=== PATIENT | female | born 1965 | race Asian ===

== ENCOUNTER → 2017-03-04 | Outpatient (CLI) | payer BC ==
--- NOTE | 2017-03-04 22:23 | US ---
EXAMINATION TYPE: US transvaginal DATE OF EXAM: 03/04/2017 6:14 PM COMPARISON: NONE CLINICAL HISTORY: R10.2 Pelvic Pain. Difficult exam due to large amount of peristalsing bowel bilater ally TECHNIQUE: Transvaginal (TV) Date of LMP: 2013 EXAM MEASUREMENTS: Uterus: Surgically absent Endometrial Stripe: Surgically absent Right Ovary: 1.8 x 1.1 x 1.2 cm Left Ovary: 2.9 x 1.3 x 1.5 cm 1. Uterus: Surgically absent 2. Endometrium: Surgically absent 3. Right Ovary: wnl 4. Left Ovary: wnl 5. Bilateral Adnexa: Large amount of peristalsing bowel visualized bilaterally 6. Posterior cul-de-sac: wnl IMPRESSION 1. Postsurgical changes with no adnexal mass or free fluid.
== END | disposition home or self-care (01) ==
LOC: RADUSMAIN 17:56
PROVIDERS: ATTEND Family Medicine
DX: R10.2 Pelvic and perineal pain (principal); Z98.890 Other specified postprocedural states
CPT/HCPCS: 76830

== ENCOUNTER → 2017-04-19 | Outpatient (CLI) | payer BC ==
[2017-04-19 09:38] LABS: Basophils # (A) 0.1 k/uL (0-0.2); Basophils % (A) 1 %; CH 31.2; CHCM 33.6; Eosinophils # (A) 0.3 k/uL (0-0.7); Eosinophils % (A) 6 %; HCT 42.7 % (34.0-46.0); HDW 2.25; HGB 14.3 gm/dL (11.4-16.0); Luc # (Auto) 0.18; Luc % (Auto) 4; Lymphocytes # (A) 1.5 k/uL (1.0-4.8); Lymphocytes % (A) 32 %; MCH 31.1 pg (25.0-35.0); MCHC 33.4 g/dL (31.0-37.0); MCV 93.2 fL (80.0-100.0); Mean Platelet Volume 8.3; Monocytes # (A) 0.4 k/uL (0-1.0); Monocytes % (A) 7 %; Neutrophils # (A) 2.4 k/uL (1.3-7.7); Neutrophils % (A) 50 %; RBC 4.59 m/uL (3.80-5.40); RDW 12.4 % (11.5-15.5); WBC 4.7 k/uL (3.8-10.6); WBC (Perox) 4.72
[2017-04-19 09:47] LABS: ALT 32 U/L (9-52); AST 37 U/L (14-36); Alkaline Phosphatase 90 U/L (38-126); Anion Gap 12 mmol/L; Blood Urea Nitrogen 19 mg/dL (7-17); Carbon Dioxide 28 mmol/L (22-30); Chloride 103 mmol/L (98-107); Cholesterol 238 mg/dL (<200); Glucose 102 mg/dL (74-99); HDL Cholesterol 48 mg/dL (40-60); Non-African American GFR(MDRD) >60 (>60 ml/min/1.73 sqM); Potassium 4.7 mmol/L (3.5-5.1); Sodium 143 mmol/L (137-145); Total Bilirubin 0.5 mg/dL (0.2-1.3); Total Protein 8.1 g/dL (6.3-8.2); Triglycerides 155 mg/dL (<150)
[2017-04-19 14:09] LABS: Hemoglobin A1C 5.2 % (4.2-6.1)
== END | disposition home or self-care (01) ==
LOC: LABMAIN 08:11
PROVIDERS: ATTEND Family Medicine
DX: E78.5 Hyperlipidemia, unspecified (principal); Z83.49 Family history of other endocrine, nutritional and metabolic diseases
CPT/HCPCS: 36415; 80053; 80061; 83036; 84439; 84443; 85025

== ENCOUNTER → 2017-11-18 | Day surgery (SDC) | payer BC ==
[2017-11-18 13:38] VITALS: PULSE 77; RESP 16; BMI 23.9
[2017-11-18 15:03] VITALS: BP 140/82; TEMP 98.7
--- NOTE | 2017-11-18 17:32 | USB ---
EXAMINATION TYPE: US biopsy breast VAD RT, Postbiopsy diagnostic mammo RT wo CAD DATE OF EXAM: 11/18/2017 CLINICAL HISTORY: 52-year-old female R92.8 ABN Mammogram. TECHNIQUE: Ultrasound guided core biopsy of the right breast. COMPARISON: 11/05/2017 and 11/07/2017 FINDINGS: The procedure of ultrasound guided core biopsy was explained to the patient. Benefits, alternatives, and risks were discussed. An informed consent was then obtained. The patient was placed in supine positioning for imaging and for the procedure. The overlying skin was prepped and draped in usual sterile fashion. Lidocaine was used as anesthetic into the skin and subcutaneous tissue up to area of concern in the subareolar right breast. Under ultrasound guidance, a 13-gauge vacuum-assisted mammotome Elite biopsy gun device was used to obtain 6 core samples. Following this, a ribbon clip was left in lesion. Postprocedure mammogram shows clip in place at the 5:00 subareolar region. The patient tolerated the procedure well without any immediate complication. The patient was kept in the radiology department for short stay after the procedure and then discharged home in stable condition. IMPRESSION: Successful, uncomplicated ultrasound guided core biopsy of area of concern in the 5:00 subareolar right breast, full pathology results to follow. Pathology Results: Benign BREAST, RIGHT POSTERIOR NIPPLE, CORE BIOPSY: FIBROCYSTIC CHANGES INCLUDING FIBROSIS, SMALL CYSTS AND MILD USUAL TYPE DUCTAL HYPERPLASIA. PSEUDOANGIOMATOUS STROMAL HYPERPLASIA (PASH). Recommendation Follow up ultrasound of the right breast in 6 months. The area can be monitored clinically as well. PASH is a benign entity that can demonstrate growth. EMILYD
== END ==
LOC: RADUSWWP 13:20
PROVIDERS: ATTEND Family Medicine
DX: N60.31 Fibrosclerosis of right breast (principal); N62 Hypertrophy of breast; R92.8 Other abnormal and inconclusive findings on diagnostic imaging of breast; Z88.2 Allergy status to sulfonamides
CPT/HCPCS: 88305; 19083; G0206; A4648; J2001

== ENCOUNTER → 2018-05-02 | Outpatient (CLI) | payer BC ==
[2018-05-02 10:19] LABS: Basophils % (A) 1 %; Eosinophils # (A) 0.2 k/uL (0-0.7); Eosinophils % (A) 5 %; HCT 42.1 % (34.0-46.0); HGB 14.3 gm/dL (11.4-16.0); Lymphocytes # (A) 1.6 k/uL (1.0-4.8); Lymphocytes % (A) 35 %; MCH 30.6 pg (25.0-35.0); MCHC 33.8 g/dL (31.0-37.0); MCV 90.3 fL (80.0-100.0); Mean Platelet Volume 7.7; Monocytes # (A) 0.4 k/uL (0-1.0); Monocytes % (A) 8 %; Neutrophils # (A) 2.1 k/uL (1.3-7.7); Neutrophils % (A) 48 %; Platelet Count 227 k/uL (150-450); RBC 4.67 m/uL (3.80-5.40); RDW 12.1 % (11.5-15.5); WBC 4.5 k/uL (3.8-10.6)
[2018-05-02 10:43] LABS: ALT 45 U/L (9-52); AST 37 U/L (14-36); Albumin 4.5 g/dL (3.5-5.0); Alkaline Phosphatase 54 U/L (38-126); Anion Gap 14 mmol/L; Blood Urea Nitrogen 14 mg/dL (7-17); Calcium 9.4 mg/dL (8.4-10.2); Carbon Dioxide 25 mmol/L (22-30); Chloride 103 mmol/L (98-107); Cholesterol 217 mg/dL (<200); Glucose 96 mg/dL (74-99); HDL Cholesterol 31 mg/dL (40-60); LDL Cholesterol,Calculated 147 mg/dL (0-99); Potassium 4.9 mmol/L (3.5-5.1); Sodium 142 mmol/L (137-145); Total Bilirubin 0.5 mg/dL (0.2-1.3); Total Protein 7.4 g/dL (6.3-8.2); Triglycerides 194 mg/dL (<150)
[2018-05-02 10:54] LABS: T4, Free (Free Thyroxine) 1.08 ng/dL (0.78-2.19)
== END | disposition home or self-care (01) ==
LOC: LABWHC1 08:28
PROVIDERS: ATTEND Obstetrics & Gynecology
DX: N95.9 Unspecified menopausal and perimenopausal disorder (principal); E78.1 Pure hyperglyceridemia; I10 Essential (primary) hypertension; E03.9 Hypothyroidism, unspecified
CPT/HCPCS: 36415; 80053; 80061; 82670; 83001; 84403; 84439; 84443; 85025

== ENCOUNTER → 2019-05-22 | Outpatient (CLI) | payer BC ==
[2019-05-22 10:02] LABS: Basophils # (A) 0.1 k/uL (0-0.2); Basophils % (A) 1 %; Eosinophils # (A) 0.3 k/uL (0-0.7); Eosinophils % (A) 4 %; HCT 45.3 % (34.0-46.0); Lymphocytes # (A) 1.9 k/uL (1.0-4.8); Lymphocytes % (A) 26 %; MCHC 33.2 g/dL (31.0-37.0); MCV 93.4 fL (80.0-100.0); Mean Platelet Volume 7.9; Monocytes # (A) 0.4 k/uL (0-1.0); Monocytes % (A) 6 %; Neutrophils # (A) 4.4 k/uL (1.3-7.7); Neutrophils % (A) 60 %; Platelet Count 220 k/uL (150-450); RBC 4.86 m/uL (3.80-5.40); RDW 12.2 % (11.5-15.5); WBC 7.2 k/uL (3.8-10.6)
[2019-05-22 17:04] LABS: African American GFR (CKD) 114.6 (60.0-200.0); Albumin 4.5 g/dL (3.80-4.90); Albumin/Globulin Ratio 1.96 (1.60-3.17); Anion Gap 7.6 mmol/L (4.00-12.00); BUN/Creat Ratio 18.57 Ratio (12.00-20.00); Calcium 9.9 mg/dL (8.7-10.3); Carbon Dioxide 25.4 mmol/L (21.6-31.8); Globulin 2.3 g/dL (1.6-3.3); Potassium 4.4 mmol/L (3.5-5.5); Total Bilirubin 0.7 mg/dL (0.2-1.2); Total Protein 6.8 g/dL (6.2-8.2)
[2019-05-22 17:11] LABS: T4, Free (Free Thyroxine) 1.2 ng/dL (0.80-1.80)
[2019-05-22 21:07] LABS: Hemoglobin A1C 5.6 % (4.0-6.0)
== END | disposition home or self-care (01) ==
LOC: LABWHC1 09:35
PROVIDERS: ATTEND Pediatrics
DX: E78.2 Mixed hyperlipidemia (principal); E11.9 Type 2 diabetes mellitus without complications; E55.9 Vitamin D deficiency, unspecified; E03.9 Hypothyroidism, unspecified; E89.41 Symptomatic postprocedural ovarian failure; D64.9 Anemia, unspecified
CPT/HCPCS: 36415; 80053; 80061; 82306; 82670; 82728; 83001; 83036; 84403; 84439; 84443; 85025

== ENCOUNTER → 2019-06-30 | Outpatient (CLI) | payer BC ==
--- NOTE | 2019-06-30 08:27 | MM ---
Reason for exam: additional evaluation requested from prior study. Last mammogram was performed 1 year and 7 months ago. History: Patient is postmenopausal. Benign US biopsy breast VAD RT of the right breast, November 18, 2017. Benign left breast aspiration of the left breast, August 16, 2013. U/S LT Cancelled Aspiration of both breasts, November 26, 2012. Benign right US cyst aspiration of the right breast, July 10, 2007. Benign US right core biopsy of the right breast, July 10, 2007. Taking estrogen for 6 months. Taking progesterone for 6 months. Physical Findings: Nurse did not find any significant physical abnormalities on exam. MG 3D Diag Mammo W/Cad AGUILA Bilateral CC and MLO view(s) were taken. Prior study comparison: November 18, 2017, right breast MG diagnostic mammo RT wo CAD. November 07, 2017, right breast MG 3d work up w/cad RT. The breast tissue is heterogeneously dense. This may lower the sensitivity of mammography. There are benign appearing round oval circumscribed right masses on the right in the upper outer quadrant at anterior and middle depth stable from 2016. No suspicious abnormality. Bilateral biopsy markers. No significant new findings when compared with previous films. These results were verbally communicated with the patient and result sheet given to the patient on 06/30/19. ASSESSMENT: Benign, BI-RAD 2 RECOMMENDATION: Routine screening mammogram of both breasts in 1 year.
== END ==
LOC: RADMAMWWP 07:03
PROVIDERS: ATTEND Obstetrics & Gynecology
DX: R92.8 Other abnormal and inconclusive findings on diagnostic imaging of breast (principal)
CPT/HCPCS: 77062; 77066

== ENCOUNTER → 2020-05-12 | Outpatient (CLI) | payer BC ==
[2020-05-12 07:54] LABS: Basophils % (A) 1 %; Eosinophils # (A) 0.3 k/uL (0-0.7); Eosinophils % (A) 5 %; HCT 42.9 % (34.0-46.0); HGB 14.7 gm/dL (11.4-16.0); Lymphocytes # (A) 1.7 k/uL (1.0-4.8); Lymphocytes % (A) 35 %; MCH 32.2 pg (25.0-35.0); MCHC 34.3 g/dL (31.0-37.0); MCV 93.9 fL (80.0-100.0); Mean Platelet Volume 8.4; Monocytes # (A) 0.3 k/uL (0-1.0); Monocytes % (A) 6 %; Neutrophils # (A) 2.5 k/uL (1.3-7.7); Neutrophils % (A) 50 %; Platelet Count 212 k/uL (150-450); RBC 4.57 m/uL (3.80-5.40); RDW 12.3 % (11.5-15.5)
[2020-05-12 12:34] LABS: Estradiol 37.6 pg/mL; Follicle Stimulating Hormone 57.2 mIU/mL
[2020-05-12 13:05] LABS: ALT 36 U/L (8-44); AST 31 U/L (13-35); African American GFR (CKD) 113.8 (60.0-200.0); Albumin/Globulin Ratio 1.92 (1.60-3.17); Alkaline Phosphatase 65 U/L (41-126); C Reactive Protein <0.4 mg/dL (0.0-0.8); Calcium 9.6 mg/dL (8.7-10.3); Carbon Dioxide 23.4 mmol/L (21.6-31.8); Chloride 103 mmol/L (96-109); Chol/HDL Ratio 5.84; Cholesterol 222 mg/dL (0-200); Globulin 2.4 g/dL (1.6-3.3); Glucose 96 mg/dL (70-110); LDL Cholesterol,Calculated 142.6 mg/dL (0.0-131.0); Non-African American GFR(CKD) 98.2 (60.0-200.0); Potassium 4.1 mmol/L (3.5-5.5); Sodium 138 mmol/L (135-145); Total Bilirubin 0.6 mg/dL (0.3-1.2)
== END | disposition home or self-care (01) ==
LOC: LABWHC1 07:04
PROVIDERS: ATTEND Pediatrics
DX: I10 Essential (primary) hypertension (principal); Z79.890 Hormone replacement therapy
CPT/HCPCS: 36415; 80053; 80061; 82670; 83001; 84402; 84439; 84443; 84481; 85025; 86140; 86769

== ENCOUNTER → 2021-02-26 | Outpatient (CLI) | payer BC ==
--- NOTE | 2021-02-26 10:48 | MM ---
Reason for exam: screening (asymptomatic). Last mammogram was performed 1 year and 8 months ago. History: Patient is postmenopausal. Benign US biopsy breast VAD RT of the right breast, November 18, 2017. Benign left breast aspiration of the left breast, August 16, 2013. U/S LT Cancelled Aspiration of both breasts, November 26, 2012. Benign right US cyst aspiration of the right breast, July 10, 2007. Benign US right core biopsy of the right breast, July 10, 2007. Took hormonal contraceptives for 5 years. Took estrogen for 6 months. Took progesterone for 6 months. Physical Findings: A clinical breast exam by your physician is recommended on an annual basis and results should be correlated with mammographic findings. MG 3D Screening Mammo W/Cad Bilateral CC and MLO view(s) were taken. Prior study comparison: June 30, 2019, bilateral MG 3d diag mammo w/cad AGUILA. November 18, 2017, right breast MG diagnostic mammo RT wo CAD. The breast tissue is extremely dense which could obscure a lesion on mammography. Increasing nodularity inner central left breast zone B. ASSESSMENT: Incomplete: need additional imaging evaluation, BI-RAD 0 RECOMMENDATION: Special view mammogram and ultrasound of the left breast. [facility] will attempt to contact patient to return for supplemental views and ultrasound.
== END | disposition home or self-care (01) ==
LOC: RADMAMWWP 07:23
PROVIDERS: ATTEND Obstetrics & Gynecology
DX: Z12.31 Encounter for screening mammogram for malignant neoplasm of breast (principal); Z78.0 Asymptomatic menopausal state
CPT/HCPCS: 77063; 77067

== ENCOUNTER → 2021-02-28 | Outpatient (CLI) | payer BC ==
--- NOTE | 2021-02-28 10:34 | BD ---
EXAMINATION TYPE: Axial Bone Density DATE OF EXAM: 02/28/2021 COMPARISON: NONE CLINICAL HISTORY: Height: 63.5 Weight: 143.2 FRAX RISK QUESTIONS: Alcohol (3 or more units per day): no Family History (Parent hip fracture): no Glucocorticoids (More than 3mos): no (Ex: prednisone, prednisolone, methylprednisolone, dexamethasone, and hydrocortisone). History of Fracture in Adulthood: no Secondary Osteoporosis: 1. Type 1 Diabetes: no 2. Hyperthyroidism: no 3. Menopause before 45: no 4. Malnutrition: no 5. Chronic liver disease: no Rheumatoid Arthritis: no Current Tobacco Use: no RISK FACTORS HISTORY OF: Surgery to Spine/Hip(right/left)/Wrist (right/left): no Family History of Osteoporosis: no Active: yes Diet low in dairy products/other sources of calcium: no Postmenopausal woman: hysterectomy age 51 Take estrogen and/or progesterone medications: bio-t How lon years Lost more than 2 inches in height since high school: no MEDICATIONS: vitamins, allergy meds Additional History: EXAM MEASUREMENTS: Bone mineral densitometry was performed using the [employer] [place]. Bone mineral density as measured about the Lumbar spine is: ----- L1-L4(G/cm2): 1.281 T Score Values are as follows: ----- L2: -0.3 ----- L3: 0.6 ----- L4: 2.5 ----- L1-L4: 0.8 Bone mineral density : baseline Bone mineral density about the R hip (g/cm2): 1.074 Bone mineral density about the L hip (g/cm2): 1.051 T Score values are as follows: -----R Neck: 0.3 -----L Neck: 0.1 -----R Total: 0.5 -----L Total: 0.5 Bone mineral density : baseline IMPRESSION: No evidence for osteoporosis or osteopenia. NOTE: T-SCORE=SD OF THE YOUNG ADULT MEAN.
== END | disposition home or self-care (01) ==
LOC: RADBDWWP 07:31
PROVIDERS: ATTEND Obstetrics & Gynecology
DX: Z13.820 Encounter for screening for osteoporosis (principal); Z78.0 Asymptomatic menopausal state
CPT/HCPCS: 77080

== ENCOUNTER → 2021-03-08 | Outpatient (CLI) | payer BC ==
--- NOTE | 2021-03-08 12:03 | USB ---
Reason for exam: additional evaluation requested from abnormal screening. History: Patient is postmenopausal. Benign US biopsy breast VAD RT of the right breast, November 18, 2017. Benign left breast aspiration of the left breast, August 16, 2013. U/S LT Cancelled Aspiration of both breasts, November 26, 2012. Benign right US cyst aspiration of the right breast, July 10, 2007. Benign US right core biopsy of the right breast, July 10, 2007. Took hormonal contraceptives for 5 years. Took estrogen for 6 months. Took progesterone for 6 months. Physical Findings: Nurse did not find any significant physical abnormalities on exam. US Breast Workup Limited LT Left limited breast ultrasound including focal area of concern, retroareolar and axilla demonstrates a 0.6 x 0.7 x 0.6cm cystic lesion with debris at 10 o'clock and a 0.4 x 0.4 x 0.3cm cystic lesion with debris at 10 o'clock. These results were verbally communicated with the patient and result sheet given to the patient on 03/08/21. ASSESSMENT: Probably benign, BI-RAD 3 RECOMMENDATION: Ultrasound of the left breast in 6 months. Consider cyst aspiration versus short term follow up. Manage patient on a clinical basis.
== END | disposition home or self-care (01) ==
LOC: RADUSWWP 09:24
PROVIDERS: ATTEND Obstetrics & Gynecology
DX: N60.02 Solitary cyst of left breast (principal)

== ENCOUNTER → 2021-03-28 | Outpatient (CLI) | payer BC ==
--- NOTE | 2021-03-29 06:35 | US ---
EXAMINATION TYPE: US kidneys/renal and bladder DATE OF EXAM: 03/28/2021 COMPARISON: NONE CLINICAL HISTORY: N39.0 urinary tract infection, site not specified. Acute urinary tract infection pe r order. Hx bladder suspension. Hx kidney stone. EXAM MEASUREMENTS: Right Kidney: 10.1 x 5.5 x 4.4 cm Left Kidney: 11.6 x 5.2 x 5.2 cm Right Kidney: No hydronephrosis or masses seen Left Kidney: No hydronephrosis or masses seen Bladder: Minimal internal echoes seen within bladder versus artifact. Bilateral Jets seen: Yes IMPRESSION: No hydronephrosis seen bilaterally. Fairly unremarkable study.
== END | disposition home or self-care (01) ==
LOC: RADUSWWP 16:47
PROVIDERS: ATTEND Pediatrics
DX: N39.0 Urinary tract infection, site not specified (principal)
CPT/HCPCS: 76770

== ENCOUNTER → 2021-04-09 | Outpatient (CLI) | payer BC ==
[2021-04-09 14:49] LABS: Basophils # (A) 0.06 X 10*3/uL (0.00-0.10); Basophils % (A) 1.1 %; Eosinophils # (A) 0.51 X 10*3/uL (0.04-0.35); Eosinophils % (A) 9.7 %; HCT 42.8 % (37.2-46.3); HGB 14.1 g/dL (12.0-15.0); Lymphocytes % (A) 34.4 %; MCH 30.7 pg (27.0-32.0); MCHC 32.9 g/dL (32.0-37.0); Mean Platelet Volume 11.6 fL (9.5-12.2); Monocytes # (A) 0.43 X 10*3/uL (0.20-1.00); Monocytes % (A) 8.2 %; Neutrophils # (A) 2.42 X 10*3/uL (1.80-7.70); Neutrophils % (A) 46.2 %; Platelet Count 229 X 10*3/uL (140-440); RDW 11.9 % (11.5-14.5); WBC 5.24 X 10*3/uL (4.50-10.00)
[2021-04-09 16:26] LABS: Albumin 4.6 g/dL (3.80-4.90); Albumin/Globulin Ratio 1.84 (1.60-3.17); Anion Gap 7.8 mmol/L (4.00-12.00); Calcium 9.8 mg/dL (8.7-10.3); Carbon Dioxide 27.2 mmol/L (21.6-31.8); Chol/HDL Ratio 6.16; Globulin 2.5 g/dL (1.6-3.3); LDL Cholesterol,Calculated 115.2 mg/dL (0.0-131.0); Non-African American GFR(CKD) 97.5 (60.0-200.0); Potassium 4.8 mmol/L (3.5-5.5); Total Bilirubin 0.5 mg/dL (0.2-1.2); Total Protein 7.1 g/dL (6.2-8.2); VLDL Calculation 49.8 mg/dL (5.00-40.00)
[2021-04-09 16:34] LABS: Estradiol 54.2 pg/mL; Follicle Stimulating Hormone 71.9 mIU/mL; T4, Free (Free Thyroxine) 1.2 ng/dL (0.80-1.80)
[2021-04-09 17:36] LABS: Hemoglobin A1C 5.2 % (4.0-6.0)
== END | disposition home or self-care (01) ==
LOC: LABWHC1 07:20
PROVIDERS: ATTEND Pediatrics
DX: E88.81 Metabolic syndrome and other insulin resistance (principal); E03.9 Hypothyroidism, unspecified; E78.5 Hyperlipidemia, unspecified; E55.9 Vitamin D deficiency, unspecified; N95.1 Menopausal and female climacteric states; N95.2 Postmenopausal atrophic vaginitis
CPT/HCPCS: 36415; 80053; 80061; 82306; 82670; 83001; 83036; 84144; 84403; 84439; 84443; 85025

== ENCOUNTER → 2021-05-12 | Day surgery (SDC) | payer BC ==
[2021-05-09 14:59] VITALS: BMI 24.6
[~2021-05-12] MED LIST: LACTATED RINGERS 1,000 ML IV ONE; PROPOFOL 10 MG/ML 20 ML VIAL IV ONE
--- NOTE | 2021-05-12 08:26 | P.PCN ---
Date of Procedure: 05/12/21 Procedure(s) Performed: Brief history: Patient is a pleasant 56-year-old female scheduled for an elective upper endoscopy as well as colonoscopy as a part of evaluation of GERD and change in bowel habits associated abdominal bloating and nausea on and off for the last 2 months duration. Procedure performed: Esophagogastroduodenoscopy with biopsy Colonoscopy Preoperative diagnosis: GERD Change in bowel habits Anesthesia: MAC Procedure: After informed consent was obtained from the patient was brought into the endoscopy unit and IV sedation was administered by anesthesia under continuous monitoring. Initially upper endoscopy was done. The Olympus GF 160 video endoscope was inserted inserted into the mouth and esophagus intubated without any difficulty and was gradually advanced into the stomach and duodenum and carefully examined. The bulb and second part of the duodenum appeared normal. The scope was then withdrawn into the stomach adequately insufflated with air and upon careful examination the antrum and body, cardia and fundus appeared normal. The scope was then withdrawn into the esophagus. The GE junction was located at 40 cm to the incisors. It appeared regular with no erythema erosions or ulcerations. Rest of the esophagus appeared normal. Patient tolerated the procedure well. At this time the patient continued to remain sedation. Initial digital rectal examination was normal. Olympus CF 160 video colonoscope was then inserted into the rectum and gradually advanced to the cecum without any difficulty. Careful examination was performed as the scope was gradually being withdrawn. The prep was excellent. The cecum, ascending colon, transverse colon, descending colon, sigmoid colon and rectum appeared normal. Retroflexion was performed in the rectum and no lesions were noted. Patient tolerated the procedure well. Impression: 1. Upper endoscopy revealed minimal antral gastritis but no evidence of esophagitis or Araujo's esophagus 2. Colonoscopy was within normal limits with no evidence of colitis or colorectal neoplasia Recommendations: Findings of this examination were discussed with the patient as well as her family. She was advised to follow with the biopsy results. She will continue with Nexium 40 mg daily and follow antireflux measures. She was advised to have a repeat screening colonoscopy in 10 years
[2021-05-12 08:34] VITALS: TEMP 96.2
[2021-05-12 08:44] VITALS: RESP 18
[2021-05-12 08:57] VITALS: BP 131/76; PULSE 78
== END ==
LOC: ORWHC2ENDO 07:15
PROVIDERS: ATTEND Internal Medicine Gastroenterology
DX: K29.50 Unspecified chronic gastritis without bleeding (principal); K21.9 Gastro-esophageal reflux disease without esophagitis; D72.820 Lymphocytosis (symptomatic); R19.5 Other fecal abnormalities; I10 Essential (primary) hypertension; Z79.899 Other long term (current) drug therapy; Z88.2 Allergy status to sulfonamides
CPT/HCPCS: 88305; 45378; 43239; J2704

== ENCOUNTER → 2021-06-15 | Outpatient (CLI) | payer BC ==
[2021-06-17 18:34] LABS: Gliadin AB IgA, Deaminated NEGATIVE (NEGATIVE); Gliadin AB IgA, Unit <0.2 U/mL; Gliadin AB IgG, Deaminated NEGATIVE (NEGATIVE)
== END | disposition home or self-care (01) ==
LOC: LABWHC1 15:49
PROVIDERS: ATTEND Pediatrics
DX: R19.4 Change in bowel habit (principal)
CPT/HCPCS: 36415; 83516

== ENCOUNTER → 2022-04-06 | Outpatient (CLI) | payer BC ==
[2022-04-06 11:14] LABS: Basophils # (A) 0.05 X 10*3/uL (0.00-0.10); Basophils % (A) 1.1 %; Eosinophils % (A) 6.5 %; HCT 40.3 % (37.2-46.3); HGB 13.1 g/dL (12.0-15.0); Immature Grans, Automated 0.6 %; Lymphocytes # (A) 1.72 X 10*3/uL (0.90-5.00); Lymphocytes % (A) 37.1 %; MCH 30.1 pg (27.0-32.0); MCHC 32.5 g/dL (32.0-37.0); MCV 92.6 fL (80.0-97.0); Mean Platelet Volume 10.7 fL (9.5-12.2); Monocytes # (A) 0.37 X 10*3/uL (0.20-1.00); NRBC Per 100 WBC 0 /100 WBCS (0.0-0.0); Neutrophils # (A) 2.16 X 10*3/uL (1.80-7.70); Neutrophils % (A) 46.7 %; Platelet Count 271 X 10*3/uL (140-440); RBC 4.35 X 10*6/uL (4.10-5.20); RDW 11.9 % (11.5-14.5); WBC 4.63 X 10*3/uL (4.50-10.00)
[2022-04-06 11:44] LABS: Erythrocyte Sedimentation Rate 16 mm/Hr (0-30)
[2022-04-06 11:48] LABS: ALT 30 U/L (8-44); AST 26 U/L (13-35); African American GFR (CKD) 114.1 (60.0-200.0); Albumin 4.4 g/dL (3.8-4.9); Albumin/Globulin Ratio 1.44 (1.60-3.17); Alkaline Phosphatase 77 U/L (41-126); BUN/Creat Ratio 18.47 Ratio (12.00-20.00); Blood Urea Nitrogen 12.3 mg/dL (9.0-27.0); Calcium 9.6 mg/dL (8.7-10.3); Carbon Dioxide 24.4 mmol/L (20.0-27.5); Chloride 105 mmol/L (96-109); Chol/HDL Ratio 5.28 Ratio; Globulin 3.1 g/dL (1.6-3.3); Glucose 98 mg/dL (70-110); LDL Cholesterol,Calculated 130.1 mg/dL (0.0-131.0); Non-African American GFR(CKD) 98.5 (60.0-200.0); Potassium 4.1 mmol/L (3.5-5.5); Sodium 141 mmol/L (135-145); Total Protein 7.5 g/dL (6.2-8.2)
== END | disposition home or self-care (01) ==
LOC: LABWHC1 08:32
PROVIDERS: ATTEND Family Medicine
DX: Z00.00 Encounter for general adult medical examination without abnormal findings (principal); S33.6XXS Sprain of sacroiliac joint, sequela; I10 Essential (primary) hypertension; E56.9 Vitamin deficiency, unspecified; E53.8 Deficiency of other specified B group vitamins; R01.1 Cardiac murmur, unspecified; Y99.9 Unspecified external cause status
CPT/HCPCS: 36415; 80053; 80061; 82306; 82607; 84443; 85025; 85652; 86140

== ENCOUNTER → 2023-04-26 | Outpatient (CLI) | payer BC ==
[2023-04-26 09:59] LABS: Basophils # (A) 0.1 k/uL (0-0.2); Basophils % (A) 1 %; Eosinophils # (A) 0.3 k/uL (0-0.7); Eosinophils % (A) 8 %; HCT 43.5 % (34.0-46.0); Lymphocytes # (A) 1.6 k/uL (1.0-4.8); Lymphocytes % (A) 39 %; MCH 30.7 pg (25.0-35.0); MCHC 32.3 g/dL (31.0-37.0); MCV 94.9 fL (80.0-100.0); Mean Platelet Volume 9.1; Monocytes # (A) 0.3 k/uL (0-1.0); Monocytes % (A) 6 %; Neutrophils # (A) 1.7 k/uL (1.3-7.7); Neutrophils % (A) 42 %; Platelet Count 198 k/uL (150-450); RBC 4.58 m/uL (3.80-5.40); RDW 12.4 % (11.5-15.5)
[2023-04-27 09:26] LABS: Estimated Average Glucose 105 mg/dL
[2023-04-27 09:27] LABS: ALT 40 U/L; AST 32 U/L; Albumin 4.7 d/dL; Albumin/Globulin Ratio 1.96 Ratio; Alkaline Phosphatase 88 U/L; Blood Urea Nitrogen 16.1 mg/dL; Calcium 10.3 mg/dL; Chloride 105 mmol/L; Chol/HDL Ratio 2.11 Ratio; Globulin 2.4 d/dL; Glucose 97 mg/dL; LDL Cholesterol,Calculated 41.7 mg/dL; Potassium 4.7 mmol/L; Sodium 141 mmol/L; Total Protein 7.1 d/dL; VLDL Calculation 11.38 mg/dL
[2023-04-28 10:14] LABS: African American GFR (CKD) 72.7; Non-African American GFR(CKD) 63.1
== END | disposition home or self-care (01) ==
LOC: LABWHC1 08:06
PROVIDERS: ATTEND Family Medicine
DX: Z00.00 Encounter for general adult medical examination without abnormal findings (principal); E78.5 Hyperlipidemia, unspecified; I10 Essential (primary) hypertension; E53.8 Deficiency of other specified B group vitamins; E55.9 Vitamin D deficiency, unspecified; J68.3 Other acute and subacute respiratory conditions due to chemicals, gases, fumes and vapors
CPT/HCPCS: 36415; 80053; 80061; 82306; 82607; 82785; 83036; 84443; 85025

== ENCOUNTER → 2023-05-03 | Outpatient (CLI) | payer BC ==
[2023-05-03 13:33] LABS: Basophils # (A) 0.05 X 10*3/uL (0.00-0.10); Basophils % (A) 1.1 %; Eosinophils # (A) 0.35 X 10*3/uL (0.04-0.35); Eosinophils % (A) 7.8 %; HGB 13.3 d/dL (12.0-15.0); Lymphocytes % (A) 39.9 %; MCH 30.1 pg (27.0-32.0); MCHC 32.4 d/dL (32.0-37.0); MCV 92.8 FL (80.0-97.0); Mean Platelet Volume 11.6 FL (9.5-12.2); Monocytes # (A) 0.36 X 10*3/uL (0.20-1.00); NRBC Per 100 WBC 0 X 10*3/uL (0.00-0.01); Neutrophils # (A) 1.94 X 10*3/uL (1.80-7.70); Platelet Count 215 X 10*3/uL (140-440); RBC 4.42 X 10*6/uL (4.10-5.20); RDW 12.1 % (11.5-14.5); WBC 4.51 X 10*3/uL (4.50-10.00)
[2023-05-03 14:13] LABS: ALT 23 U/L (8-44); AST 23 U/L (13-35); Albumin 4.7 d/dL (3.8-4.9); Albumin/Globulin Ratio 1.88 Ratio (1.60-3.17); Alkaline Phosphatase 82 U/L (41-126); BUN/Creat Ratio 22.67 Ratio (12.00-20.00); Blood Urea Nitrogen 13.6 mg/dL (9.0-27.0); Calcium 9.7 mg/dL (8.7-10.3); Carbon Dioxide 25.2 mmol/L (21.6-31.8); Chloride 106 mmol/L (96-109); Chol/HDL Ratio 5.82 Ratio; Globulin 2.5 d/dL (1.6-3.3); Glucose 101 mg/dL (70-110); LDL Cholesterol,Calculated 139.6 mg/dL (0.0-131.0); Potassium 4.2 mmol/L (3.5-5.5); Sodium 141 mmol/L (135-145); Total Bilirubin 0.4 mg/dL (0.3-1.2); Total Protein 7.2 d/dL (6.2-8.2)
== END | disposition home or self-care (01) ==
LOC: LABWHC1 08:14
PROVIDERS: ATTEND Pediatrics
DX: E78.5 Hyperlipidemia, unspecified (principal); D64.9 Anemia, unspecified; E03.9 Hypothyroidism, unspecified; E88.81 Metabolic syndrome and other insulin resistance
CPT/HCPCS: 36415; 80053; 80061; 82306; 82785; 83036; 84436; 84439; 84443; 85025

== ENCOUNTER → 2024-05-15 | Outpatient (CLI) | payer BC ==
[2024-05-15 12:50] LABS: Basophils # (A) 0.07 X 10*3/uL (0.00-0.10); Basophils % (A) 1.3 %; Eosinophils # (A) 0.41 X 10*3/uL (0.04-0.35); Eosinophils % (A) 7.5 %; HCT 39.6 % (37.2-46.3); HGB 13.2 g/dL (12.0-15.0); Lymphocytes # (A) 2.16 X 10*3/uL (0.90-5.00); Lymphocytes % (A) 39.3 %; MCH 30.8 pg (27.0-32.0); MCHC 33.3 g/dL (32.0-37.0); MCV 92.5 FL (80.0-97.0); Mean Platelet Volume 11.4 FL (9.5-12.2); Monocytes # (A) 0.56 X 10*3/uL (0.20-1.00); Monocytes % (A) 10.2 %; NRBC Per 100 WBC 0 X 10*3/uL (0.00-0.01); Neutrophils # (A) 2.29 X 10*3/uL (1.80-7.70); Neutrophils % (A) 41.5 %; Platelet Count 197 X 10*3/uL (140-440); RBC 4.28 X 10*6/uL (4.10-5.20); RDW 12.2 % (11.5-14.5)
[2024-05-15 13:24] LABS: Blood Urea Nitrogen 16.1 mg/dL (9.0-27.0); Carbon Dioxide 25.9 mmol/L (21.6-31.8); Chloride 104 mmol/L (96-109); Glucose 97 mg/dL (70-110); LDL Cholesterol,Calculated 68.7 mg/dL (0.0-131.0); Potassium 4.6 mmol/L (3.5-5.5); Sodium 139 mmol/L (135-145)
[2024-05-15 13:25] LABS: ALT 40 U/L (8-44); AST 34 U/L (13-35); Albumin 4.7 g/dL (3.8-4.9); Albumin/Globulin Ratio 1.96 Ratio (1.60-3.17); Alkaline Phosphatase 87 U/L (41-126); Globulin 2.4 g/dL (1.6-3.3); T4, Free (Free Thyroxine) 1.25 ng/dL (0.80-1.80); Total Bilirubin 0.3 mg/dL (0.3-1.2); Total Protein 7.1 g/dL (6.2-8.2)
== END | disposition home or self-care (01) ==
LOC: LABWHC1 07:46
PROVIDERS: ATTEND Pediatrics
DX: E78.5 Hyperlipidemia, unspecified (principal); E03.9 Hypothyroidism, unspecified; D64.9 Anemia, unspecified; E55.9 Vitamin D deficiency, unspecified; E88.810 Metabolic syndrome
CPT/HCPCS: 36415; 80053; 80061; 82306; 83036; 84439; 84443; 85025

== ENCOUNTER → 2025-04-09 | Outpatient (CLI) | payer BC ==
[2025-04-09 13:09] LABS: Basophils # (A) 0.07 X 10*3/uL (0.00-0.10); Basophils % (A) 1.2 %; Eosinophils # (A) 0.47 X 10*3/uL (0.04-0.35); Eosinophils % (A) 8.2 %; HCT 40.1 % (37.2-46.3); Lymphocytes # (A) 1.78 X 10*3/uL (0.90-5.00); MCH 30.7 pg (27.0-32.0); MCHC 32.4 g/dL (32.0-37.0); MCV 94.6 FL (80.0-97.0); Mean Platelet Volume 11.7 FL (9.5-12.2); Monocytes # (A) 0.51 X 10*3/uL (0.20-1.00); Monocytes % (A) 8.9 %; NRBC Per 100 WBC 0 X 10*3/uL (0.00-0.01); Neutrophils % (A) 50.5 %; Platelet Count 203 X 10*3/uL (140-440); RBC 4.24 X 10*6/uL (4.10-5.20); RDW 12.2 % (11.5-14.5); WBC 5.74 X 10*3/uL (4.50-10.00)
[2025-04-09 13:36] LABS: ALT 36 U/L (8-44); AST 31 U/L (13-35); Albumin 4.5 g/dL (3.8-4.9); Alkaline Phosphatase 73 U/L (41-126); BUN/Creat Ratio 26.14 Ratio (12.00-20.00); Blood Urea Nitrogen 18.3 mg/dL (9.0-27.0); Calcium 9.9 mg/dL (8.7-10.3); Carbon Dioxide 25.3 mmol/L (21.6-31.8); Chloride 108 mmol/L (96-109); Chol/HDL Ratio 4.38 Ratio; Globulin 2.5 g/dL (1.6-3.3); Glucose 94 mg/dL (70-110); LDL Cholesterol,Calculated 88.7 mg/dL (0.0-131.0); Potassium 4.8 mmol/L (3.5-5.5); Sodium 145 mmol/L (135-145); T4, Free (Free Thyroxine) 1.29 ng/dL (0.80-1.80); Total Bilirubin 0.4 mg/dL (0.3-1.2)
== END | disposition home or self-care (01) ==
LOC: LABWHC1 07:46
PROVIDERS: ATTEND Family Medicine
DX: Z12.31 Encounter for screening mammogram for malignant neoplasm of breast (principal); E78.5 Hyperlipidemia, unspecified; R73.9 Hyperglycemia, unspecified; R00.1 Bradycardia, unspecified; D51.9 Vitamin B12 deficiency anemia, unspecified
CPT/HCPCS: 36415; 80053; 80061; 82306; 82607; 83036; 84439; 84443; 84480; 85025